=== PATIENT | female | born 1965 | race Caucasian/White ===

== ENCOUNTER 2023-07-20 05:18 | Emergency (ER) | payer OTHER, SELFPAY ==
[2023-07-20 05:21] VITALS: BP 145/76; PULSE 65; RESP 16; TEMP 36.1; O2SAT 99; BMI 32.0
--- NOTE | 2023-07-20 06:29 | ED_ITS ---
HPI - Extremity Problem General Chief complaint: Extremity Problem Stated complaint: Right ring finger injury Time Seen by Provider: 07/20/23 05:42 Source: patient Mode of arrival: ambulatory Limitations: no limitations History of Present Illness HPI Narrative: Patient comes to the emergency room complaining of an infection around the bed nail in the right index finger. Patient states that she patient finger while lifting a box approximately 8 days ago. Patient took a course of Bactrim for 5 days. However it has not getting any better. Patient denies fever chills Related Data Previous Rx's Medication Instructions Recorded cephalexin 500 mg capsule 500 mg PO BID #14 caps 07/20/23 doxycycline hyclate 100 mg tablet 100 mg PO BID #14 tabs 07/20/23 ibuprofen 600 mg tablet 600 mg PO TID PRN fever or pain 07/20/23 #20 tabs Allergies Allergy/AdvReac Type Severity Reaction Status Date / Time No Known Allergies Allergy Verified 07/20/23 05:45 Review of Systems Review of Systems: Constitutional : No Weight loss, No Fever, No Chills, No Night Sweats, No Fatigue, No Malaise ENT/Mouth : No Hearing loss, No Ear Pain, No Nasal Congestion, No Sinus Pain, No Hoarseness, No sore throat, No Rhinorrhea, No Swallowing Difficulty Eyes: No Eye Pain, No Swelling, No Redness, No Foreign Body, No Discharge, No Vision Changes Cardiovascular : No Chest Pain, No SOB, No Dyspnea on Exertion, No Orthopnea, No Edema, No Palpitations Respiratory : No Cough, No Sputum, No Wheezing, No Smoke Exposure, No Dyspnea Gastrointestinal : No Nausea, No Vomiting, No Diarrhea, No Constipation, No abdominal Pain, No Hematochezia, No Melena Genitourinary : no irregular bleeding, No Dysuria, No Urinary Frequency, No Hematuria, No Urinary Incontinence, No Urgency, No Flank Pain, No Urinary Flow Changes, No Hesitancy Musculoskeletal : No joint pain, No Myalgias, No Joint Swelling Skin : Complaining of pain around the Benadryl of the right index finger Neuro : No Weakness, No Numbness, No Paresthesias, No Loss of Consciousness, No Dizziness, No Headache Psych : No Anxiety/Panic, No Depression, No SI/HI/AH/VH, No Social Issues, Heme/Lymph: No Bruising, No Bleeding,No Lymphadenopathy Endocrine : No Polyuria, No Polydipsia, No Temperature Intolerance [facility] Social History Social History Advance Directives: No Advance Directives Information Provided: No Physical Exam Vital Signs: Vital Signs: Last Vital Signs Temp 97 F 07/20/23 05:21 Pulse 65 07/20/23 05:21 Resp 16 07/20/23 05:21 BP 145/76 H 07/20/23 05:21 Pulse Ox 99 07/20/23 05:21 O2 Del Method Room Air 07/20/23 05:21 BMI result Body Mass Index 32.0 Const: Other: Appearance: Alert. Oriented X3. No acute distress. Eyes: Pupils equal, round and reactive to light. ENT: Pharynx normal. Neck: Normal inspection. Neck supple. No lymph nodes noted. No crepitus CVS: Normal heart rate and rhythm. Pulses normal. Normal S1 and S2 Respiratory: No respiratory distress. Breath sounds normal. No Wheezing. No rales Abdomen: Soft and nontender. No rigidity. No distention. Skin: Skin warm and dry. Paronychia present around the right index finger Extremities: No lower extremity edema. No Lacerations. No Rash Neuro: Oriented X 3. No motor deficit. No sensory deficit. Moving all extremities. No slurred speech. CN 2 through 12 grossly intact Psych: calm, cooperative, normal affect Medications Administered Discontinued Medications Generic Name Dose Route Start Last Admin Trade Name Billyq PRN Reason Stop Dose Admin Lidocaine HCl 2 ml 07/20/23 05:45 07/20/23 05:51 Lidocaine Hcl 2% 2 Ml Vial INFILTRATI 07/20/23 05:46 2 ml ONCE ONE Administration Medical Decision Making Medical Decision Making [facility] Narrative: Patient had paronychia present, patient was given lidocaine 2%, approximately 3 mL were used. An incision was on around the fingernail, pus was drained. Differential Diagnosis Differential Diagnoses: The differential diagnosis associated with the presentation includes (Cellulitis, abscess, paronychia) Discharge Plan Discharge Clinical Impression: Paronychia of finger of right hand Patient Disposition: Home, Self-Care Instructions: Paronychia (ED) Additional Instructions: Please follow-up with your primary care physician tomorrow. If you have any worsening or new symptoms, please return to the emergency room or call 911 Prescriptions: New cephalexin 500 mg capsule 500 mg PO BID Qty: 14 0RF doxycycline hyclate 100 mg tablet 100 mg PO BID Qty: 14 0RF ibuprofen 600 mg tablet 600 mg PO TID PRN (Reason: fever or pain) Qty: 20 0RF
[2023-07-20] MEDS: Ibuprofen 600 MG TABLET PO (06:49)
[2023-07-20] MEDS: cephALEXin 500 MG CAPSULE PO (06:49)
[2023-07-20] MEDS: Doxycycline Monohydrate 100 MG CAPSULE PO (06:49)
== END 2023-07-20 06:50 | disposition home or self-care (01) ==
PROVIDERS: Emergency Provider Emergency Medicine
DX: L03.011 Cellulitis of right finger (principal)
CPT/HCPCS: 10060; 99283; 99284